=== PATIENT | female | born 1970 | race American Indian/Alaskan Native ===

== ENCOUNTER 2017-12-01 23:34 | Emergency (ER) | payer BC ==
[2017-12-02] MEDS ORDERED: ASPIRIN PO ONE (01:54)
[2017-12-02] MEDS ORDERED: NORCO 5/325 ONE (02:05)
[2017-12-02] MEDS ORDERED: ZOFRAN ODT ONE (02:06)
[2017-12-02] MEDS ORDERED: ZOFRAN ODT PO ONE (02:07)
[2017-12-02] MEDS ORDERED: NORCO 5/325 PO ONE (02:07)
[2017-12-02 02:18] LABS: Basophils % (Auto) 0.3 % (0.0-1.8); Eosinophils % (Auto) 0.6 % (0.0-4.3); Hemoglobin 12.8 gm/dl (10.1-14.3); Lymphocytes # (Auto) 2.7 K/mm3 (1.2-5.4); Lymphocytes % (Auto) 33.9 % (13.4-35.0); Mean Corpuscular HGB Conc 33 % (30-34); Mean Corpuscular Hemoglobin 28 pg (28-32); Mean Corpuscular Volume 84 fl (79-97); Monocytes # (Auto) 0.5 K/mm3 (0.0-0.8); Monocytes % (Auto) 5.9 % (0.0-7.3); Platelet Count 284 K/mm3 (140-440); Red Blood Count 4.65 M/mm3 (3.65-5.03)
[2017-12-02 02:41] LABS: BUN/Creatinine Ratio 9; Blood Urea Nitrogen 9 mg/dL (7-17); Calcium 9.4 mg/dL (8.4-10.2); Hemolysis Index 10
[2017-12-02] MEDS ORDERED: SUBLIMAZE IV ONE ×2 (11:24→13:32)
[2017-12-02] MEDS ORDERED: BENADRYL IV ONE (11:24)
--- NOTE | 2017-12-02 11:29 | Emergency Department Report ---
HPI - General Chief Complaint: Chest Pain Time Seen by Provider: 12/02/17 11:23 - HPI HPI: The patient is a 47 yo f whom presents for evaluation of headache and chest pain. The patient reports constant severe 10/10 in severity headache for the past 4 days, throbbing in quality, frontal in location, exacerbated with bright lights. The patient shares that she has felt her blood pressure to be elevated as well throughout the past 4 days. She submits that she has been informed that she has borderline elevated blood pressure, but states that she has not been diagnosed with hypertension or placed on antihypertensive medication regimen. The patient also admitted to some tightness of the chest this morning , mild in severity, lasting for minutes, currently resolved. The patient denies fever, head injury, neck pain, neck stiffness, trauma to the chest, cough, dyspnea, hemoptysis, abdominal pain, vision or hearing changes, smell or taste changes, paresthesias or motor weakness in the arms or legs, facial drooping, slurred speech, seizure-like activity, urine or bowel incontinence or retention , or other focal neurological deficit. ED Past Medical Hx - Past Medical History Previous Medical History?: Yes Hx Headaches / Migraines: Yes - Surgical History Past Surgical History?: Yes Additional Surgical History: Bilateral Ovaries removed - Social History Smoking Status: Never Smoker - Medications Home Medications: Home Medications Medication Instructions Recorded Confirmed Last Taken Type SUMAtriptan succinate [SUMAtriptan 50 mg PO QDAY PRN #20 tablet 12/02/17 Unknown Rx Succinate] ED Review of Systems ROS: Stated complaint: CHEST PAIN/HIGH BP Other details as noted in HPI Constitutional: denies: fever ENT: denies: throat or neck pain Respiratory: denies: cough, shortness of breath Cardiovascular: reports: chest pain Endocrine: denies unexplained weight loss or gain Gastrointestinal: denies: abdominal pain, nausea Genitourinary: denies: dysuria Musculoskeletal: denies: leg swelling Skin: denies: rash Neurological: reports: headache Hematological/Lymphatic: denies: easy bleeding or easy bruising Psych: denies sadness or hopelessness Physical Exam - Physical Exam Vital Signs: Vital Signs 12/01/17 12/02/17 12/02/17 23:43 01:50 02:08 Temperature 98.8 F 98.8 F Pulse Rate 77 74 Respiratory 18 18 20 Rate Blood Pressure 155/100 155/100 Blood Pressure [Right] O2 Sat by Pulse 98 99 Oximetry 12/02/17 12/02/17 08:30 10:35 Temperature Pulse Rate 68 63 Respiratory 16 18 Rate Blood Pressure 168/90 Blood Pressure 168/96 [Right] O2 Sat by Pulse Oximetry Physical Exam: General: well-nourished, well-developed, no acute distress Head: Normocephalic, atraumatic Eyes: normal sclera, PERRL, EOM intact ENT: Mucous membranes are pink and moist Neck: trachea midline, neck supple, No neck stiffness, no cervical adenopathy Respiratory: Breath sounds equal bilaterally, no wheezing, rales, or rhonchi Cardio: S1 and S2 present, no murmurs, rubs, gallops, capillary refill is brisk Abdomen: Normoactive bowel sounds, soft abdomen, no rigidity, no guarding or rebound tenderness Musc: No pitting edema Skin: No rash Neuro: alert oriented x3, normal cognition, speech normal, no facial drooping, no uvula or tongue deviation on protrusion, no deficit with rotation of neck or shoulder shrug, no obvious gross motor deficit in the upper or lower extremities with flexion or extension at the shoulder, elbow, wrist, hip, knee, or ankle bilaterally, no obvious gross sensation deficit to crude touch or 2 pt discrimination, 2+ symmetric reflexes on DTR testing, no coordination deficit with [id number] or [id number] testing, Babinski downgoing Psych: Normal affect ED Course Vital Signs 12/01/17 12/02/17 12/02/17 23:43 01:50 02:08 Temperature 98.8 F 98.8 F Pulse Rate 77 74 Respiratory 18 18 20 Rate Blood Pressure 155/100 155/100 Blood Pressure [Right] O2 Sat by Pulse 98 99 Oximetry 12/02/17 12/02/17 08:30 10:35 Temperature Pulse Rate 68 63 Respiratory 16 18 Rate Blood Pressure 168/90 Blood Pressure 168/96 [Right] O2 Sat by Pulse Oximetry ED Medical Decision Making - Lab Data Result diagrams: 12/02/17 02:02 12/02/17 02:02 - Medical Decision Making The patient was seen and examined by myself. The patient is placed on a case monitor and continuous pulse ox. On initial evaluation, the patient was found to be in no distress. EKG was negative for findings suggestive of acute cardiac infarct. Labs and imaging are obtained. Chest x-ray is negative for pneumothorax, focal consolidation, pulmonary vascular congestion, pleural effusion, or other obvious acute cardiopulmonary disease process. Lab results were non-concerning including levels of troponin, WBC, hemoglobin, hematocrit, electrolytes, renal function. The patient was reevaluated and reported that their symptoms were markedly improved. As the patient has a ALEXANDRE risk score less than 2, and a well's score less than 2, the patient is at low risk of ACS or pulmonary emboli etiology of their symptoms. The patient is stable for discharge with outpatient follow-up. The patient is given follow-up and return instructions. The patient expressed understanding and agreed with the plan. The patient is discharged in stable condition. Critical care attestation.: If time is entered above; I have spent that time in minutes in the direct care of this critically ill patient, excluding procedure time. ED Disposition Clinical Impression: Acute non intractable tension-type headache, Acute chest pain Disposition: TO HOME OR SELFCARE Is pt being admited?: No Does the pt Need Aspirin: No Condition: Stable Instructions: Chest Pain (ED), Migraine Headache (ED) Prescriptions: SUMAtriptan succinate [SUMAtriptan Succinate] 50 mg PO QDAY PRN #20 tablet PRN Reason: Headache Referrals: [facility] [Outside] - 3-5 Days TRISH SANCHEZ MD [Staff Physician] - 3-5 Days Time of Disposition: 12:38
--- NOTE | 2017-12-02 12:29 | XRay Report ---
FINAL REPORT EXAM: XR CHEST 1V AP HISTORY: chest pain TECHNIQUE: Frontal chest x-ray. PRIORS: None currently available. FINDINGS: Cardiac silhouette is borderline enlarged. Mildly prominent central pulmonary markings. No pneumothorax. No distinct consolidation. No effusion. There are no suspicious osseous lesions. IMPRESSION: Borderline cardiomegaly. Pulmonary findings may represent pneumonia, bronchiolitis/bronchitis, reactive airway disease, interstitial pneumonitis, or pulmonary vascular congestion. Developing pulmonary vascular congestion and reactive airway disease favored at this time.
--- NOTE | 2017-12-02 12:29 | Cat Scan Report ---
FINAL REPORT EXAM: CT HEAD/BRAIN WO CON HISTORY: headache TECHNIQUE: CT of the Head without IV contrast. PRIORS: None currently available. FINDINGS: There is no evidence for acute ischemia. There is no hemorrhage. There is no midline shift. There is no hydrocephalus. There is no mass. Age appropriate diana-white matter attenuation is noted. There is no calvarial fracture. The temporal bones demonstrate aerated mastoid air cells. The middle ears appear unremarkable. Paranasal sinuses are unremarkable. Globes are intact. IMPRESSION: No acute intracranial findings.
[2017-12-02 13:03] VITALS: BP 112/64
[2017-12-02] MEDS ORDERED: TORADOL IV ONE (13:32)
== END 2017-12-02 15:09 | disposition home or self-care (01) ==
LOC: ED 23:34
DX: G44.209 Tension-type headache, unspecified, not intractable (principal); R07.89 Other chest pain; R03.0 Elevated blood-pressure reading, without diagnosis of hypertension; Z90.722 Acquired absence of ovaries, bilateral
CPT/HCPCS: 36415; 70450; 71045; 80048; 84484; 85025; 93005; 93010; 96374; 96375; 99285; J1200; J3010; Q0162